=== PATIENT | male | born 1945 | race Caucasian/White ===

== ENCOUNTER 2018-08-20 09:30 | Inpatient (IN) | payer OTHER ==
[~2018-08-20] VITALS: Ht 170.2 cm; Wt 87.1 kg
[2018-08-20] MEDS ORDERED: ZINC LOZENGES1 EACH PO (13:58)
[2018-08-20] MEDS ORDERED: LOSARTAN-HCTZ1 EAC1 PO (13:59)
[2018-08-20] MEDS ORDERED: ZOCOR40 MG PO (13:59)
== END 2018-09-04 12:41 | disposition home or self-care (01) | DRG 331 ==
LOC: ADM 09:30 → EDSTATUS 09:30 → SURH 08-28 05:46 → O/R 08-28 05:46 → SURH 08-28 17:01 → SURG 08-28 21:00 → SURH 08-28 21:04
PROVIDERS: ADMIT Colon & Rectal Surgery
PROC: 07TB4ZZ Resection of Mesenteric Lymphatic, Percutaneous Endoscopic Approach (ICD-10-PCS; 2018-08-28)
PROC: 0DTF4ZZ Resection of Right Large Intestine, Percutaneous Endoscopic Approach (ICD-10-PCS; principal; 2018-08-28 07:00)
DX: C18.2 Malignant neoplasm of ascending colon (principal); R59.0 Localized enlarged lymph nodes; E78.00 Pure hypercholesterolemia, unspecified; I11.9 Hypertensive heart disease without heart failure; Z86.010 Personal history of colon polyps; Z88.0 Allergy status to penicillin

== ENCOUNTER 2018-08-20 16:43 | Outpatient (CLI) | payer OTHER ==
[~2018-08-20 16:43] MED LIST: LOSARTAN-HCTZ1 EAC1 PO; ZINC LOZENGES1 EACH PO; ZOCOR40 MG PO
== END 2018-08-20 17:19 | disposition home or self-care (01) ==
LOC: LAB 16:43
DX: D68.8 Other specified coagulation defects (principal)

== ENCOUNTER 2018-08-22 10:49 | Day surgery (SDC) | payer OTHER | END 2018-08-22 13:55 | disposition home or self-care (01) | LOC: AMB-ENDOS 10:49 | DX: D12.3 Benign neoplasm of transverse colon (principal); K64.1 Second degree hemorrhoids ==